=== PATIENT | female | born 1985 | race Two or more races ===

== ENCOUNTER → 2022-04-08 11:35 | Outpatient (CLI) | payer BC, SELFPAY ==
[2022-04-08 15:34] LABS: Basophils # 0.1 K/mm3 (0-0.2); Basophils % 1.3 % (0.1-2.0); Eosinophils # 0.2 K/mm3 (0.0-0.4); Eosinophils % 2.2 % (0.1-12.0); Hematocrit 51.1 % (37.0-47.0); Hemoglobin 16.4 g/dL (12.2-16.2); Lymphocytes # 2.5 K/mm3 (0.7-4.5); Lymphocytes % 30.1 % (10-50); Mean Corpuscular HGB Conc 32.1 g/dL (31.8-35.4); Mean Corpuscular Hemoglobin 30.9 pg (27.0-31.2); Mean Corpuscular Volume 96.4 fl (81-99); Mean Platelet Volume 8.8 fl (7.4-10.4); Monocytes # 0.5 K/mm3 (0.1-1.0); Monocytes % 5.4 % (1.7-9.3); Neutrophils # 5.2 K/mm3 (1.8-7.8); Neutrophils % 61.1 % (37.0-80.0); Platelet Count 314 K/mm3 (142-424); Red Cell Distribution Width 13.7 % (11.5-17.5); White Blood Count 8.4 K/mm3 (4.8-10.8)
[2022-04-08 15:52] LABS: Hemoglobin A1C 6.9 % (4.0-6.0)
[2022-04-08 16:23] LABS: Chloride 105 mmol/L (98-107); Sodium 140 mmol/L (136-145)
[2022-04-08 16:24] LABS: Potassium 4.5 mmoL/L (3.5-5.1)
[2022-04-08 16:26] LABS: Blood Urea Nitrogen 16 mg/dl (7-17); Estimated Glomerular Filt Rate 179 ml/min (>60); GFR (African American) 216 ML/MIN (>60)
[2022-04-08 16:27] LABS: Anion Gap 15.5 mEq/L (5-15); Calcium 9.6 mg/dl (8.4-10.2); Carbon Dioxide 24 mmol/L (22.0-30.0); Chol/HDL Ratio 5.5 (1-3.5); Cholesterol 194 mg/dl (140-200); Glucose 140 mg/dl (74-100); HDL Cholesterol 35 mg/dl (40-60); Triglycerides 202 mg/dl (30-150); VLDL Cholesterol 40 mg/dL (0-40)
[2022-04-08 16:58] LABS: Thyroid Stimulating Hormone 3.01 uIU/mL (0.465-4.68)
[2022-04-08 17:02] LABS: Ferritin 187 ng/ml (6.24-137)
[2022-04-10 08:30] LABS: Direct LDL Cholesterol 113 mg/dL (100-129)
== END ==
PROVIDERS: PCP Family Medicine; Visit Provider Family Medicine
DX: Z76.89 Persons encountering health services in other specified circumstances (principal); E03.9 Hypothyroidism, unspecified; E11.9 Type 2 diabetes mellitus without complications; I10 Essential (primary) hypertension; Z79.84 Long term (current) use of oral hypoglycemic drugs; Z79.899 Other long term (current) drug therapy
CPT/HCPCS: 80048; 80061; 82728; 83036; 84443; 85025